=== PATIENT | female | born 1995 | race Caucasian/White ===

== ENCOUNTER → 2022-05-14 | Outpatient (CLI) | payer OTHER, SELFPAY ==
[2022-05-14 12:01] LABS: hCG Titer Quant., Serum 9155 mIU/mL (1-3)
== END | disposition home or self-care (01) ==
PROVIDERS: Referring Provider Obstetrics & Gynecology; Visit Provider Obstetrics & Gynecology
DX: O20.0 Threatened abortion (principal); Z3A.00 Weeks of gestation of pregnancy not specified
CPT/HCPCS: 36415; 84702

== ENCOUNTER → 2022-05-17 | Outpatient (CLI) | payer OTHER, SELFPAY ==
[2022-05-17 11:30] LABS: hCG Titer Quant., Serum 11034 mIU/mL (1-3)
== END | disposition home or self-care (01) ==
PROVIDERS: Referring Provider Obstetrics & Gynecology; Visit Provider Obstetrics & Gynecology
DX: N91.2 Amenorrhea, unspecified (principal)
CPT/HCPCS: 36415; 84702

== ENCOUNTER → 2022-05-20 | Outpatient (CLI) | payer OTHER, SELFPAY ==
--- NOTE | 2022-05-20 13:55 | US_ITS ---
STUDY: FIRST TRIMESTER OBSTETRICAL ULTRASOUND REASON FOR EXAM: Female, 27 years old wellbeing LMP: 04/02/2022 TECHNIQUE: Transvaginal TECHNICAL QUALITY: Adequate. PRIOR ULTRASOUND: None. FINDINGS: There is visualization of a single gestational sac in a normal intrauterine position. The mean sac diameter (MSD) measures 1.2 cm, indicating an estimated gestational age (EGA) of 6 weeks, 0 days. The gestational sac shape is within normal limits. There is a visualized yolk sac. The yolk sac measures 3 mm. The placenta is non-visualized. There is visualization of a live embryo. The crown-rump length (CRL) measures 6 mm, indicating an estimated gestational age (EGA) of 6 weeks, 4 days. There is demonstrated cardiac activity with a heart rate of 117 bpm. The estimated gestation age (EGA) by LMP is 6 weeks, 6 days. The estimated date of delivery (HUDSON) by LMP is 01/07/2023. The estimated gestation age (EGA) by US is 6 weeks, 2 days. The estimated date of delivery (HUDSON) by US is 01/11/2023. The uterus measures 9.2 cm x 6.5 cm x 5.2 cm. There is no demonstrated uterine fibroid. The cervix is closed. The right ovary measures 4.5 cm x 2.9 cm x 2.6 cm. There is a 2.9 cm x 1.5 cm x 1.8 cm corpus luteum cyst. There is no visualized right adnexal mass or complex lesion. The left ovary measures 2.9 cm x 1.4 cm x 1.5 cm. There is no left ovarian cyst. There is no visualized left adnexal mass or complex lesion. There is no fluid in the cul de sac. US/Transvaginal w/Preg US IMPRESSION: Single live intrauterine gestation with a mean gestational age of 6 weeks and 2 days. Right corpus luteum cyst measuring 2.9 cm x 1.5cm x 1.8 cm. Electronically Signed: Paul Weeks MD at 15:34 EDT ,
== END | disposition home or self-care (01) ==
LOC: OPUS 13:54
PROVIDERS: Visit Provider Obstetrics & Gynecology
DX: O36.80X0 Pregnancy with inconclusive fetal viability, not applicable or unspecified (principal); Z3A.00 Weeks of gestation of pregnancy not specified
CPT/HCPCS: 76817

== ENCOUNTER → 2022-06-04 | Outpatient (CLI) | payer OTHER, SELFPAY ==
[2022-06-04 18:09] LABS: Amphetamine Urine VISTA NEGATIVE (<1000 ng/mL); Barbiturate Urine VISTA NEGATIVE (< 200 ng/mL); Benzodiazepine Urine VISTA NEGATIVE (< 200 ng/mL); Cocaine Urine VISTA NEGATIVE (< 300 ng/mL); Ecstacy Urine VISTA NEGATIVE (< 500 ng/mL); Methadone Urine VISTA NEGATIVE (< 300 ng/mL); PCP Urine VISTA NEGATIVE (< 25 ng/mL); THC Urine VISTA NEGATIVE (< 50 ng/mL); Vista UDS pH Range 6
[2022-06-07 00:06] LABS: Chlamydia By Nucleic Acid AMP Negative (Negative)
[2022-06-07 15:24] LABS: Gonococcus By Nucleic Acid AMP Negative (Negative)
== END | disposition home or self-care (01) ==
PROVIDERS: Visit Provider Obstetrics & Gynecology
DX: Z34.00 Encounter for supervision of normal first pregnancy, unspecified trimester (principal)
CPT/HCPCS: 80307; 87086; 87088; 87491; 87591

== ENCOUNTER → 2022-07-29 | Outpatient (CLI) | payer OTHER, SELFPAY ==
[2022-07-29 09:44] LABS: Absolute Lymphocyte Count 2.28 X10^3/uL (0.83-4.51); Absolute Neutrophil Count 7.5 X10^3/uL (2.0-7.7); Basophil# 0.05 X10^3/uL; Basophil% 0.5 % (0-1); Eosinophil# 0.11 X10^3/uL; Hematocrit 40.8 % (37-47); Hemoglobin 13.8 g/dL (12.0-15.0); Lymphocyte # 2.28 X10^3/ul (0.83-4.51); Lymphocyte % 20.8 % (19-41); Mean Corp Hgb Conc 33.8 g/dL (32-36); Mean Corpuscular Volume 85.7 fL (81-99); Mean Platelet Vol. 10.8 fl (6.2-12.0); Monocyte# 0.93 X10^3/uL; Monocyte% 8.5 % (0-10); NRBC Flagged by Analyzer 0 % (0-5); Neutrophil # 7.53 X10^3/uL (2.7-7.7); Neutrophil % 68.7 % (47-70); Platelet Count 180 K/mm3 (150-450); RBC Distribution Width CV 13.1 % (11.6-14.6); RBC Distribution Width SD 40.7 fl (35.1-43.9); Red Blood Count 4.76 M/mm3 (4.2-5.4)
[2022-07-29 10:59] LABS: HIV - WCH Non-Reactive (Nonreactive); Hepatitis B Surface Antigen Non-Reactive (Nonreactive); Hepatitis C Antibody Non-Reactive (Nonreactive); Rubella IgG Reactive (Nonreactive); Syphilis Antibodies Non-reactive
== END | disposition home or self-care (01) ==
PROVIDERS: Referring Provider Obstetrics & Gynecology; Visit Provider Obstetrics & Gynecology
DX: Z34.00 Encounter for supervision of normal first pregnancy, unspecified trimester (principal)
CPT/HCPCS: 36415; 85025; 86703; 86762; 86780; 86803; 86850; 86900; 86901; 87340

== ENCOUNTER → 2022-09-02 | Outpatient (CLI) | payer OTHER, SELFPAY ==
--- NOTE | 2022-09-02 11:27 | US_ITS ---
STUDY: FIRST TRIMESTER OBSTETRICAL ULTRASOUND REASON FOR EXAM: Female, 27 years old cervical length LMP: 04/02/2022. TECHNIQUE: Transvaginal TECHNICAL QUALITY: Adequate. PRIOR ULTRASOUND: None. FINDINGS: Cervical length measures 2.8 cm. US/Transvaginal w/Preg US IMPRESSION: The cervical length measures 2.8 cm. Electronically Signed: Paul Weeks MD at 9:11 EDT ,
== END | disposition home or self-care (01) ==
LOC: US 11:26
PROVIDERS: Referring Provider Registered Nurse; Visit Provider Registered Nurse
DX: O26.872 Cervical shortening, second trimester (principal)
CPT/HCPCS: 76817

== ENCOUNTER → 2024-03-08 | Outpatient (CLI) | payer OTHER, SELFPAY | END | disposition home or self-care (01) | PROVIDERS: Referring Provider Advanced Practice Midwife; Visit Provider Advanced Practice Midwife | DX: O09.90 Supervision of high risk pregnancy, unspecified, unspecified trimester (principal); Z3A.00 Weeks of gestation of pregnancy not specified | CPT/HCPCS: 87086; 87088 ==

== ENCOUNTER → 2024-06-09 | Outpatient (CLI) | payer OTHER, SELFPAY ==
--- NOTE | 2024-06-09 15:27 | US_ITS ---
ACR Level 3 findings have been noted. An addendum which confirms receipt of the report will follow. EXAM: US SECOND OR THIRD TRIMESTER , TRANSABDOMINAL AND TRANSVAGINAL CLINICAL INDICATION: anatomy TECHNIQUE: Transabdominal and endovaginal obstetrical ultrasound of the maternal pelvis and a second or third trimester with image documentation. Endovaginal imaging was used for better evaluation of the fetus and adnexa. COMPARISON: No relevant prior studies available. FINDINGS: FETUS: Single viable IUP. HEART RATE: heart rate: 162 bpm. PRESENTATION: Variable presentation. PLACENTA: Anterior placenta. No placenta previa. No abruption. AMNIOTIC FLUID: Maximal vertical pocket of amniotic fluid is 4.3 cm with otherwise subjectively normal amniotic fluid volume. ANATOMY: The four-chamber heart is poorly visualized. Although not optimally visualized, the face, nose and lips appear normal. Abdominal and pelvic organs of the fetus appear normal. Extremities are seen. Umbilical cord appears normal. Normal intracranial structures are identified to include the lateral ventricles, choroid, cerebellum and cisterna magna. No ventricular dilatation. No definite spinal abnormality is identified. BIOMETRICS GESTATIONAL AGE: 19 weeks, 2 days HUDSON: 11/01/2024. EFW: Estimated weight: 291 g (18%). BPD: 4.22 cm. HC: 16.66 cm. AC: 14.47 cm. FL: 2.96 cm. MATERNAL: UTERUS: No significant abnormality. No myometrial mass. CERVIX: There is mild funneling of the cervix measuring 2.8 cm in length. ADNEXA: No significant abnormality. No adnexal masses. FREE FLUID: None. US/OB Anatomy w/ Transvaginal IMPRESSION: 1. There is mild funneling of the cervix measuring 2.8 cm in length. 2. Correlate visualized four-chamber heart are not optimally visualized facial structures. Consider interval follow-up examination. Otherwise, no anomaly is identified. Electronically Signed: Ralf Lynn DO at 21:04 EDT ,
== END | disposition home or self-care (01) ==
LOC: US 15:25
PROVIDERS: Referring Provider Nurse Practitioner Women's Health; Visit Provider Nurse Practitioner Women's Health
DX: Z34.90 Encounter for supervision of normal pregnancy, unspecified, unspecified trimester (principal)
CPT/HCPCS: 76805; 76817

== ENCOUNTER → 2024-07-12 | Outpatient (CLI) | payer OTHER, SELFPAY ==
--- NOTE | 2024-07-12 13:34 | US_ITS ---
EXAM: US SECOND OR THIRD TRIMESTER , TRANSABDOMINAL AND TRANSVAGINAL CLINICAL INDICATION: shortened cervix -- please also measure cervix. TECHNIQUE: Transabdominal and endovaginal obstetrical ultrasound of the maternal pelvis and a second or third trimester with image documentation. Endovaginal imaging was used for better evaluation of the fetus and adnexa. COMPARISON: No relevant prior studies available. FINDINGS: FETUS: HEART RATE: 144 at 145 bpm. PRESENTATION: Cephalic. PLACENTA: Anterior, grade 0. No placenta previa. No abruption. AMNIOTIC FLUID: Unremarkable. Maximum vertical fluid pocket 5.6 cm. ANATOMY: Nose-lips, profile, face four-chamber heart, stomach appear unremarkable. Limited exam. BIOMETRICS GESTATIONAL AGE: 24 weeks 5 days. HUDSON: October 27, 2024. EFW: 695 g +/- 104 g, 28th percentile. BPD: 24 weeks 3 days. HC: 24 weeks 1 day. AC: 24 weeks 3 days.. FL: 24 weeks 2 days. RATIOS: Within normal limits for standard ratios. MATERNAL: UTERUS: Unremarkable. No myometrial mass. CERVIX: 2.8 cm in length closed mid-inferior segment as measured on transvaginal exam. It was 2.8 cm June 09, 2024. Similar configuration. ADNEXA: Not visualized. FREE FLUID: None. IMPRESSION: Single live intrauterine . No acute abnormality. Short closed 2.8 cm cervix. Stable measurement compared to June 09, 2024. Symmetric measurements. Incomplete survey. Electronically Signed: Sanna Brown MD at 3:08 EDT , EXAM: US SECOND OR THIRD TRIMESTER , TRANSABDOMINAL AND TRANSVAGINAL CLINICAL INDICATION: shortened cervix -- please also measure cervix. TECHNIQUE: Transabdominal and endovaginal obstetrical ultrasound of the maternal pelvis and a second or third trimester with image documentation. Endovaginal imaging was used for better evaluation of the fetus and adnexa. COMPARISON: No relevant prior studies available. FINDINGS: FETUS: HEART RATE: 144 at 145 bpm. PRESENTATION: Cephalic. PLACENTA: Anterior, grade 0. No placenta previa. No abruption. AMNIOTIC FLUID: Unremarkable. Maximum vertical fluid pocket 5.6 cm. ANATOMY: Nose-lips, profile, face four-chamber heart, stomach appear unremarkable. Limited exam. BIOMETRICS GESTATIONAL AGE: 24 weeks 5 days. HUDSON: October 27, 2024. EFW: 695 g +/- 104 g, 28th percentile. BPD: 24 weeks 3 days. HC: 24 weeks 1 day. AC: 24 weeks 3 days.. FL: 24 weeks 2 days. RATIOS: Within normal limits for standard ratios. MATERNAL: UTERUS: Unremarkable. No myometrial mass. CERVIX: 2.8 cm in length closed mid-inferior segment as measured on transvaginal exam. It was 2.8 cm June 09, 2024. Similar configuration. ADNEXA: Not visualized. FREE FLUID: None. US/OB Limited With Biometrics IMPRESSION: Single live intrauterine . No acute abnormality. Short closed 2.8 cm cervix. Stable measurement compared to June 09, 2024. Symmetric measurements. Incomplete survey. Electronically Signed: Sanna Brown MD at 3:09 EDT ,
== END | disposition home or self-care (01) ==
PROVIDERS: Referring Provider Obstetrics & Gynecology; Visit Provider Obstetrics & Gynecology
DX: O09.92 Supervision of high risk pregnancy, unspecified, second trimester (principal); Z3A.00 Weeks of gestation of pregnancy not specified
CPT/HCPCS: 76816; 76817

== ENCOUNTER → 2024-08-10 | Outpatient (CLI) | payer OTHER, SELFPAY ==
[2024-08-10 15:27] LABS: Absolute Lymphocyte Count 2.13 X10^3/uL (0.83-4.51); Absolute Neutrophil Count 6.8 X10^3/uL (2.0-7.7); Basophil# 0.03 X10^3/uL; Basophil% 0.3 % (0-1); Eosinophil# 0.26 X10^3/uL; Eosinophils% 2.6 % (0-5); Hematocrit 38.4 % (37-47); Hemoglobin 12.7 g/dL (12.0-15.0); Lymphocyte # 2.13 X10^3/ul (0.83-4.51); Mean Corp Hgb Conc 33.1 g/dL (32-36); Mean Corpuscular Hgb 27.9 pg (27.0-32.0); Mean Corpuscular Volume 84.2 fL (81-99); Mean Platelet Vol. 11.8 fl (6.2-12.0); Monocyte# 0.79 X10^3/uL; Monocyte% 7.8 % (0-10); NRBC Flagged by Analyzer 0 % (0-5); Neutrophil # 6.84 X10^3/uL (2.7-7.7); Neutrophil % 67.6 % (47-70); Platelet Count 171 K/mm3 (150-450); RBC Distribution Width CV 13.2 % (11.6-14.6); RBC Distribution Width SD 40.5 fl (35.1-43.9); Red Blood Count 4.56 M/mm3 (4.2-5.4); White Blood Count 10.1 K/mm3 (4.4-11.0)
[2024-08-10 20:25] LABS: HIV - WCH Non-Reactive (Nonreactive); Hepatitis B Surface Antigen Non-Reactive (Nonreactive); Hepatitis C Antibody Non-Reactive (Nonreactive); Rubella IgG Reactive (Nonreactive); Syphilis Antibodies Non-reactive
== END | disposition home or self-care (01) ==
LOC: WOBLAB 14:55
PROVIDERS: Advanced Practice Midwife; Referring Provider Obstetrics & Gynecology; Visit Provider Obstetrics & Gynecology
DX: O09.90 Supervision of high risk pregnancy, unspecified, unspecified trimester (principal); Z3A.00 Weeks of gestation of pregnancy not specified
CPT/HCPCS: 36415; 85025; 86703; 86762; 86780; 86803; 86850; 86900; 86901; 87340

== ENCOUNTER 2025-09-21 05:24 | Day surgery (SDC) | payer BC, SELFPAY ==
[2025-09-20 16:35] LABS: Hematocrit 42.5 % (37-47); Hemoglobin 14.1 g/dL (12.0-15.0); Immature Granulocytes Count 0.030 X10^3/uL (0.0-0.0); Mean Corp Hgb Conc 33.2 g/dL (32-36); Mean Corpuscular Volume 82.8 fL (81-99); Mean Platelet Vol. 10.9 fl (6.2-12.0); NRBC Flagged by Analyzer 0 % (0-5); Platelet Count 210 K/mm3 (150-450); RBC Distribution Width CV 12.9 % (11.6-14.6); RBC Distribution Width SD 39.2 fl (35.1-43.9); Red Blood Count 5.13 M/mm3 (4.2-5.4); White Blood Count 10.3 K/mm3 (4.4-11.0)
[2025-09-20 17:12] LABS: hCG Titer Quant., Serum 2946 mIU/mL (<9 non-preg)
[2025-09-21] VITALS (9 sets, daily range): BP systolic 102–125; BP diastolic 62–87; PULSE 76–97; RESP 16–18; TEMP 36.1–36.3; O2SAT 95–100; BMI 33.8
[2025-09-21] MEDS: Lactated Ringers 1,000 ML 15 ML IV (06:34)
--- NOTE | 2025-09-21 06:45 | PRE.ANES_ITS ---
ASA Classification* ASA Classification ASA Classification: 2 Assessment & Plan Anesthesia* Anesthesia Assessment Anesthesia Assessment: Discussed sedation and/or anesthesia options, risks, benefits, and alternatives with patient/parents/legal guardian/POA. Questions invited. The patient/parents/legal guardian/POA seems to understand and agrees to proceed with anesthesia plan. Reviewed the physical assessment, medical history, allergy history and patient home medications list prior to surgery/procedure/anesthetic and documented any changes. Performed airway and anesthesia risk assessments. Anesthesia Type Anesthesia Type: MAC History Source History Obtained from:: Patient and Chart Anesthesia Focused Assessment* Temperature: 97.0 F Pulse Rate: 80 Blood Pressure: 125/71 Respiratory Rate: 18 Pulse Ox: 98 Oxygen Delivery Method: Room Air Airway Assessment Mouth opens: >3 cm Mallampati Score: III Teeth Condition: Intact Neck Range of motion (ROM): Full ROM Labs Anesthesia Preop lab: CBC WBC, (4.4-11.0) 10.3 K/mm3 09/20/25, 15:59 RBC, (4.2-5.4) 5.13 M/mm3 09/20/25, 15:59 Hgb, (12.0-15.0) 14.1 g/dL 09/20/25, 15:59 Hct, (37-47) 42.5 % 09/20/25, 15:59 Plt Count, (150-450) 210 K/mm3 09/20/25, 15:59 CHEMISTRY COAG HCG, Quant, (<9 non-preg) 2946 mIU/mL H 09/20/25, 15:5 9 Pre-Assessment Diagnosis/Proposed Procedure Planned Operative Procedure(s): Suction D&C Anesthesia History 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 When Was Last Pacemaker Check QUESTION #4 FULL TEXT: You/Your Family Experience fever (hyperthermia) with Anesthesia Last Oral Intake Last Oral intake: Last Oral Intake NPO since 21:00 09/21/25 06:16 Meds taken in AM with sips of No 09/21/25 06:16 water? Meds patient instructed to take am of surgery PONV PONV - national park ranger: PONV - national park ranger Female HX of Motion Sickness HX of N/V After Surgery Non-Smoker Duration of Surgery greater than 60 minutes Number of Risk Factors PONV Score Height & Weight Height & Weight: Anesthesia: Height & Weight Height 5 ft 7 in 09/21/25 06:16 Weight: 98 kg 09/21/25 06:16 Body Mass Index (BMI) 33.8 09/21/25 06:16 Respiratory Assessment Respiratory Assessment - national park ranger: Respiratory Tract Infection Hx - national park ranger Hx Respiratory Tract Infection No Any additional information?: Yes Hx Respiratory Tract Infection: No STOP Sleep Apnea STOP Sleep Apnea - national park ranger: STOP Sleep Apnea - national park ranger Hx Hypertension Hx Sleep Apnea CPAP BIPAP Do you snore loudly (louder than talking or can be heard Do you often feel tired/ fatigued/ sleepy during daytime? Has anyone observed you stop breathing during sleep? STOP Results QUESTION #5 FULL TEXT : Do you snore loudly (louder than talking or can be heard through closed doors)? 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 Specify any problems Hx of Preganancy in last 3 Months Nurse Filling Out Transfusion & Questions: Date: Time: Patient unable to answer at this time (ie. confused, unrespo /Reproduction History /Reproductive History - national park ranger: /Reproductive Hx- national park ranger Hx Now Gestational Age (in weeks): EDC: Hx Hx Para Hx Section SAB No 09/20/25 15:08 Does the father of the baby or his family experience fever w Father of the baby Malignant Hypertension history comment Active Medications Active Medications: Current Medications Generic Name Dose Route Start Last Admin Trade Name Freq PRN Reason Stop Dose Admin Lactated Ringer's 1,000 mls @ 15 mls/hr 09/21/25 06:00 09/21/25 06:34 IV 15 mls/hr .Q48H KIMI Administration PFSH Medical History Cervical shortening Home Medications ?Medication ?Instructions ?Recorded ?Last Taken ?Type NK 09/20/25 Unknown History Allergy/AdvReac Type Severity Reaction Status Date / Time No Known Allergies Allergy Verified 09/21/25 06:16 Family History Mother Family history of recurrent miscarriage Surgical History [place] teeth extracted no surgical history Social History adopted: No household members: spouse housing: house number of children: 1 current occupational status: employed 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 current occupational exposures/hazards: No pets and animals: Yes (outside) pets and animals: dog(s) history of recent travel: No sexually active: Yes Smoking Status: Never smoker alcohol intake: former details: prior social - not while substance use type: does not use well-balanced diet: daily or most days caffeine: Yes Type: coffee Number of servings: 1 eating out: rarely or never during the past year weight has: increased > 10 lbs what type of physical activity do you participate in: walking frequency: 3-4 times per week duration: 45-60 minutes/day zaida/mormonism: Religion seatbelt use: always do you feel safe at home: Yes additional social history: Spouse Warren- vocational trainer Review of Systems (Anesthesia) ROS Narrative System reviewed and no additional complaints, except as documented.
--- NOTE | 2025-09-21 07:28 | PCM.HP.BLA ---
History and Physical Intake Vital Signs 08/24/2411:09 09/20/2515:08 09/20/2515:08 Height 5 ft 7 in 5 ft 7 in 5 ft 7 in Weight: 216 lb 9 oz BMI 33.9 BP 135/85 H Intake Visit Reasons: Miscarriage follow up *COPAY $50 Lactation Specialist Required: No Is patient in pain?: No Allergies No Known Allergies Allergy (Verified 09/20/25 15:07) Medications ?Medication ?Instructions ?Recorded ?Confirmed ?Type NK 09/20/25 09/20/25 History Post menopausal: No Patient : No : No PFSH Medical History Cervical shortening Surgical History [place] teeth extracted Family History Mother Family history of recurrent miscarriage Social History adopted: No household members: spouse housing: house number of children: 1 current occupational status: employed 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 current occupational exposures/hazards: No pets and animals: Yes (outside) pets and animals: dog(s) history of recent travel: No sexually active: Yes Smoking Status: Never smoker alcohol intake: former details: prior social - not while substance use type: does not use well-balanced diet: daily or most days caffeine: Yes Type: coffee Number of servings: 1 eating out: rarely or never during the past year weight has: increased > 10 lbs what type of physical activity do you participate in: walking frequency: 3-4 times per week duration: 45-60 minutes/day zaida/jewish: Yazidi seatbelt use: always do you feel safe at home: Yes additional social history: Spouse Posey- lion trainer HPI Miscarriage follow up *COPAY $50 Details: KRISTI MCDANIEL is a 30 year old who presents for early loss 7 weeks scanned and no viable IUP seen, retained POC. she has had bleeding for days, cramping. she had a recent delivery at 10 months previously [facility] she denies any fevers. she wantss to proceed with surgical management. History 3 Elective abortions Hx Para 2 Spontaneous abortions 1 Hx # Term Pregnancies 2 Ectopic pregnancies Hx # Pregnancies Multiple births # of living children 2 Past Pregnancies Del. Date Name GA/Weeks Outcome Route Bth Weight Gen Labor Lgth Anesthesia Del Locatn Provider FOB 12/31/22 [facility] 38 live - full term 5#14oz Male 2 HR none Home Mother delivered baby [place] 11/01/24 [facility] 40 live - full term 7lbs 3oz Female none HOME Delivery Date: 12/31/22 Last Updated by: Margie Connolly precipitous delivery, breech ROS Const ROS Unobtainable: All systems reviewed & are unremarkable except as noted in H Resp Resp: Reports system reviewed and no additional complaints, except as documented; Denies cough GI GI: Reports as per HPI Psych Psych: Reports system reviewed and no additional complaints, except as documented Exam Const General: cooperative, healthy appearing, comfortable and no acute distress Resp Effort & Inspection: normal respiratory effort General: bimanual renal exam normal bilaterally External Female Exam: normal appearance of the urethra Urethra: normal appearance of the urethra Speculum Exam - Vagina: normal appearance of the vagina Speculum Exam - Cervix: other (slight trickle of blood from cervix. cx closed visually ) Bimanual Exam- Adnexa, other: normal adnexae and normal Pelvic Support: normal Other: ultrasound shows a 1.cm collection of tissue in the endometrium. no gestational sac. There is more of a sac appearance in the cervix. Skin General: no rashes or lesions noted Psych Appearance: grossly normal Speech and Movement: speech and movement normal Coding Level of Care Code Off vis,est,level 4 Diagnoses Incomplete O03.4 Assessment and Plan Assessment and Plan (1) Incomplete : Status: Acute Plan: After discussing the patient's diagnosis and treatment plan options, patient wishes to proceed with surgical management. I have discussed with the patient the risks, benefits, and alternatives of the procedure which include but are not limited to risks of anesthesia, bleeding, infection, possible damage to bowel, bladder, or surrounding vasculature which could lead to additional surgery to evaluate any complications. Patient agrees to procedure and wishes to proceed. ACOG/uptodate references given for additional information regarding procedure. plan for suction d&c tomorrow with Dr. Marcial at 7:30. bleeding precautions discussed. UPDATE- I have seen the patient and performed any clinically relevant updates to the history and physical exam. June Marcial MD
--- NOTE | 2025-09-21 07:30 | POC_PTH ---
PATIENT: KRISTI MCDANIEL LOC: [facility] U#:[id number] AGE/SX: 30/F ROOM: RE09/21/[address]: Dr. June Marcial MD : 1995 BED: DIS: 09/21/2025 SPEC #: [id number] RECD: 09/21/25 08:54 STATUS: HAILY REQ #: [id number] JACKELIN: 09/21/25 07:[address]: June Marcial DEPT: SURGICAL PATHOLOGY RECD BY: Shayne Lane ENTERED: 09/21/25 10:57 SP TYPE: PROD CONC OTHR DR: MARIAM Ivy Tissues: A - Product of conception, NOS Procedures: Surgery Specimen Level IV HEADER OPERATION: Dilation and curettage, suction PRE-OP DIAGNOSIS: Incomplete TISSUE SUBMITTED: A- Products of conception MICROSCOPIC DIAGNOSIS A. Uterine contents: - Inflamed and degenerating decidua with secretory endometrium and chorionic villi consistent with intrauterine products of conception MICROSCOPIC DESCRIPTION Slides are reviewed. GROSS DESCRIPTION A. Received in formalin labeled with the patient's name and date of . Designated as products of conception is a 6.8 x 5.7 x 0.8 cm aggregate of pink-red irregular tissue fragments and clotted blood. parts are not identified. Incident Response Consultant sections are submitted in 3 cassettes. TN 09/21/2025 A. Additional insurance sales representative sections are submitted in cassettes A4-A6, following histopathologic review. TN 09/23/2025 CPT:43601
[2025-09-21] MEDS: Midazolam 2 MG/2 ML Syringe IV (07:33)
[2025-09-21] MEDS: fentaNYL 100 MCG/2 ML Ampul IV (07:38)
[2025-09-21] MEDS: Lidocaine 1% (5 ml sdv) 5 ML Vial IV (07:38)
--- NOTE | 2025-09-21 07:56 | PCM.OPRPT ---
Procedures Urinary/Genital 52xxx-59xxx: 51179 Trmt of incomplete Ab, any TM Operative Report (Standard) Operative Information Date of Procedure: 09/21/25 Pre-Operative Diagnosis: see problem list comments Post-Operative Diagnosis: same Surgery/Procedure Performed: suction dilation and curettage jointer submarine cable: No Type of Anesthesia: IV Sedation and Local RN Documented Start/Stop Times: Operation Date: 09/21/25 07:30 Case Time Into Pre-Op 09/21/25 05:45 Anesthesia Start 09/21/25 07:30 Into Room 09/21/25 07:30 Out of Pre-Op 09/21/25 07:32 Procedure Start 09/21/25 07:49 Procedure Start Time: 07:49 Procedure Stop Time: 07:54 Select all DRAINS/GRAFTS/IMPLANTS that apply: None Estimated Blood Loss: 100 Specimen collected: Yes Description of specimen(s) removed: retained POC Description of surgery: Patient was taken to the operating room and placed under MAC local anesthesia. She was prepped and draped in the normal sterile fashion the dorsal lithotomy position. Bladder was drained of clear urine and anterior lip of the cervix was grasped and the uterus sounded to 8mm. Cervix was progressively dilated to allow passage of a 8mm suction curette. Progressive passes were made removing the retained products of conception without complication. Sharp curettage confirmed complete removal of the retained products. All instruments were removed from the vagina and excellent hemostasis was noted and the patient was taken to recovery in stable condition. Surgical Findings: 7 week missed ab Complications Complications: No
--- NOTE | 2025-09-21 07:58 | DCINST_ITS ---
Discharge Instructions DC O2, CPAP, BIPAP needs Home O2 Discharge instructions: No Dressing / Incision Discharge Activity: Return to Normal Activity, May Shower and May Take a Tub Bath (after 1 week) May resume sexual activity in: 1-2 weeks Weight Bearing Status: Weight bearing as tolerated Lifting Restrictions: none Dressing / Incision Call your doctor if you observe: Fever of 101 or Higher, Using more than 1 pad per hour, Shortness of breath and Uncontrolled pain Follow Up Care Please Follow Up With: June Marcial MD When: Call [phone] to schedule appointment. Test Results: Test results from this visit will be discussed in further detail at your follow- up appointment, if applicable. Discharge Plan Admission Attending Provider: June Marcial Primary Care Provider: Tessa Rapp Instructions Print Language: Hungarian Discharge Orders/Prescriptions Prescriptions: No Action NK Referrals / Follow Up: Tessa Rapp PA [Primary Care Provider, Medical] Disposition Disposition (needs filled in before D/C Order can be placed): Home, Self Care
--- NOTE | 2025-09-21 08:13 | PCM.POST.ANE ---
Anesthesia: Postop Eval I Current Vital Signs Temperature: 97.4 F Pulse Rate: 94 Blood Pressure: 113/87 Respiratory Rate: 16 Pulse Ox: 99 Oxygen Delivery Method: Room Air Assessment Airway patent: Yes Spontaneous unlabored respirations: Yes Mental status: Awake and Calm nausea: No Vomiting: No Anesthesia Complication: No Fluid Hydration Crystalloid volume administer (ml): 700 Total IV fluid infused: 700 Progress Note Anesthesia document: Postop Eval 1 completed: Yes
[2025-09-21] MEDS: HYDROcodone Bitartrate/Apap 5/325 Tablet PO (08:59)
--- NOTE | 2025-09-21 16:42 | POSTOPAN2_ITS ---
Anesthesia Postop Eval I Sum Postop Eval Completion status Anesthesia document: Postop Eval 1 completed: Yes Anesthesia Postop Eval I Summary Anesthesia Postop Eval I Summary: Anesthesia Postop Eval I: Assessment Summary Airway patent Yes 09/21/25 08:14 ORDER BUILDER LOADER.[email or web address] Spontaneous unlabored Yes 09/21/25 08:14 ORDER BUILDER LOADER.GDOTT respirations Mental status Awake,Calm 09/21/25 08:14 ORDER BUILDER LOADER.GDOTT nausea No 09/21/25 08:14 ORDER BUILDER LOADER.GDOTT Vomiting No 09/21/25 08:14 ORDER BUILDER LOADER.GDOTT Anesthesia Postop Eval I: Fluid Summary Crystalloid volume administer 700 09/21/25 08:14 ORDER BUILDER LOADER.GDOTT (ml) Colloids volume administered ( ml) Blood Product volume administered (ml) Total IV fluid infused 700 09/21/25 08:14 ORDER BUILDER LOADER.GDOTT Anesthesia Postop Eval I: Summary Notes Anesthesia Complication No 09/21/25 08:14 ORDER BUILDER LOADER.GDOTT Anesthesia Complication Comment: Post-operative progress note Anesthesia: Postop Eval II Evaluation Mental status: Awake and Calm Pain Level: 0 nausea: No Vomiting: No
--- NOTE | 2025-09-21 16:42 | PCM.POSTANE2 ---
Anesthesia Postop Eval I Sum Postop Eval Completion status Anesthesia document: Postop Eval 1 completed: Yes Anesthesia Postop Eval I Summary Anesthesia Postop Eval I Summary: Anesthesia Postop Eval I: Assessment Summary Airway patent Yes 09/21/25 08:14 [employer]PERVISOR TE[employer]ION [employer]ASSIS REPAIR.GDOTT Spontaneous unlabored Yes 09/21/25 08:14 SUPERVISOR TELE[employer]ASSIS REPAIR.GDOTT respirations Mental status Awake,Calm 09/21/25 08:14 SUPERVISOR TE[employer]ASSIS REPAIR.GDOTT nausea No 09/21/25 08:14 SUPERVISOR TELEVIS[employer]ASSIS REPAIR.GDOTT Vomiting No 09/21/25 08:14 SUPERVISOR TELEVISION [employer]ASSIS REPAIR.GDOTT Anesthesia Postop Eval I: Fluid Summary Crystalloid volume administer 700 09/21/25 08:14 SUPERVISOR TE[employer]VIS[employer] CHASSIS REPAIR.GDOTT (ml) Colloids volume administered ( ml) Blood Product volume administered (ml) Total IV fluid infused 700 09/21/25 08:14 SUPERVISOR TELEVISION CHASSIS REPAIR.GDOTT Anesthesia Postop Eval I: Summary Notes Anesthesia Complication No 09/21/25 08:14 SUPERVISOR TELEVISION CHASSIS REPAIR.GDOTT Anesthesia Complication Comment: Post-operative progress note Anesthesia: Postop Eval II Evaluation Mental status: Awake and Calm Pain Level: 0 nausea: No Vomiting: No
== END 2025-09-21 09:13 | disposition home or self-care (01) ==
LOC: SDC 05:25 → AC 05:41
PROVIDERS: Obstetrics & Gynecology; PCP Physician Assistant; Referring Provider Obstetrics & Gynecology; Visit Provider Obstetrics & Gynecology
PROC: (CPT 59812; principal; 2025-09-21 07:15)
DX: O03.4 Incomplete spontaneous abortion without complication (principal)
CPT/HCPCS: 59812; 01965; 36415; 84702; 85025; 86850; 86900; 86901; 88305; J2405